=== PATIENT | male | born 1935 ===

== ENCOUNTER 2025-04-09 10:41 | Outpatient (CLI) | payer MEDICARE, OTHER, SELFPAY ==
--- NOTE | 2025-05-10 09:00 | W.CARDEVENT ---
Date of service: 05/10/25 Time of Service: 09:00 Cardiac Event Recorder Referring Provider:: Kathy Howard Indications:: Atrial fibrillation Cardiac Event Note: This is a cardiac event monitor. Patient was monitored for 22 days and 20 hours Rhythm throughout was atrial fibrillation with an average heart rate of 98 Sporadic premature ventricular contractions were noted. There were several 3-4 beat runs of nonsustained ventricular tachycardia There were no apparent patient symptoms
== END 2025-04-09 10:42 | disposition home or self-care (01) ==
PROVIDERS: PCP Nurse Practitioner Family; Visit Provider Nurse Practitioner Family
DX: I48.91 Unspecified atrial fibrillation (principal)
CPT/HCPCS: 93270

== ENCOUNTER 2025-05-10 10:06 | Outpatient (CLI) | payer MEDICARE, OTHER, SELFPAY | END 2025-05-10 10:07 | disposition home or self-care (01) | LOC: CARDOPNVT 10:06 | PROVIDERS: PCP Nurse Practitioner Family; Visit Provider Internal Medicine Cardiovascular Disease | DX: I48.0 Paroxysmal atrial fibrillation (principal); I49.3 Ventricular premature depolarization; I47.29 Other ventricular tachycardia | CPT/HCPCS: 93272 ==